=== PATIENT | female | born 1985 | race Caucasian/White ===

== ENCOUNTER 2023-09-29 14:15 | Emergency (ER) | payer OTHER, SELFPAY ==
[2023-09-29 14:26] VITALS: BP 114/74
--- NOTE | 2023-09-29 16:12 | ED.GENMED ---
History of Present Illness
General
Chief Complaint: Eye Problems
Source: patient
Exam Limitations: none
Time Seen by Provider: 09/29/23 15:11
Nursing documentation reviewed up to this point in time: agreed with
Travel History
Have you had any contact with someone who has COVID-19?: No
Do you have any symptoms of coronavirus? Fever > 100 degrees, chills, cough, shortness of breath, sore throat, loss of taste or smell, muscle aches, or headache?: No
History of Present Illness
History of Present Illness:
Patient to ED with complaint of right eye pain. Symptoms started 3 days ago. No history of trauma. Complains of FB senstion, light sensitivity. No prior history of same. Brought self to ED for eval. Wears contact lenses.
Past History
Past History
ED Past Medical History: Other (Ovarian cyst)
ED Past Surgical History: Gynecological (Miscarriage/. Leep procedure)
Social History
Tobacco: Smoker
Alcohol: Daily (Wine one bottle)
Personal: Single
Living: with family
Review of Systems
Review of Systems
Allergies reviewed?: Yes
All Other Systems: ROS reviewed and negative except as documented in HPI and ROS
Constitutional: Reports no symptoms
EENT: Reports tearing and other (Right eye pain)
Respiratory: Reports no symptoms
Cardiac: Reports no symptoms
ABD/GI: Reports no symptoms
Musculoskeletal: Reports no symptoms
Skin: Reports no symptoms
Neurological: Reports no symptoms
Psychiatric: Reports no symptoms
Phy Exam
General Physical Exam
General Presentation: moderate distress
General age: appears stated age
General Skin: warm and dry
General Habitus: normal
General Mental: alert and angry
Eye Exam
Eye Exam: PERRL, EOMI, conjunctiva normal, globe normal and other (normally wears contacts. Wearing glasses today. Lids everted, swept with qtip. No foreign body detected)
Refraction?: Yes
Eye Exam General: PERRL: bilateral and EOM intact: bilateral
Pupil Exam: Bilateral: round and reactive
Conjunctival Changes: right: watery discharge
Cornea Exam: abrasion: Right (superficial punctate keratitis)
Type of Exam: slit lamp, simple and fluorescein
Musculoskeletal Exam
Musculoskeletal Exam: full ROM and neuro vasc intact
Skin Exam
Skin Exam: normal color, warm/dry and no rash
Psychiatric Exam
Psychiatric Exam: normal mood/affect
Course
Orders/Labs/Results
Orders:
Orders
09/29/23 15:54
Tetracaine HCl [Tetracaine 0.5% Ophthalmic Solution] 1 drop .ROUTE .STK-MED ONE
09/29/23 16:06
Ofloxacin [Ocuflox] See Dose Instructions OPHTH NOW STA
Vital Signs
Initial and Last Documented VS:
Initial Vital Signs
Temp Pulse Resp BP Pulse Ox
98.2 F 65 18 114/74 100
09/29/23 14:26 09/29/23 14:26 09/29/23 14:26 09/29/23 14:26 09/29/23 14:26
Last Documented Vital Signs
Temp Pulse Resp BP Pulse Ox
98.2 F 65 18 114/74 100
09/29/23 14:26 09/29/23 14:26 09/29/23 14:26 09/29/23 14:26 09/29/23 14:26
*Critical Care Note
Total Time (30-74mins, 75-104mins- exclusive of procedures): Not Applicable
ED Attending Note
-
Portions of this chart may have been created with voice recognition software.� Occasional wrong word or��sound alike� substitutions may have occurred due to the inherent limitations of voice recognition software.
Discharge Plan
Departure
Patient Disposition: Home (Routine Discharge)
Date of Disposition: 09/29/23
Time of Disposition: 16:07
Patient with high blood pressure during this ER visit?: No
Condition: Good
Covid-19: Not Applicable
Discharge Problem:
Keratitis, superficial, punctate
Instructions: How to Use Eye Drops
Prescriptions:
No Action
hydrocodone-acetaminophen [Vicodin] 1 EACH tablet
1 ea PO Q6H PRN (Reason: pain) Qty: 15 0RF
clindamycin HCl 150 MG capsule
150 mg PO Q6 Qty: 30 0RF
Referrals:
Maurice Sin MD [Active] - Call in 1-3 days for appt
NONE,* [Family Provider] -
Interventions
Interventions:
*Risk Screen - Suicide Last Done: 09/29/23 14:26
*General Assessment Last Done: 09/29/23 14:26
*Neglect/Abuse Screening Last Done: 09/29/23 14:26
*ED COVID-19 Vaccine History Last Done: 09/29/23 14:26
[2023-09-29] MEDS: OCUFLOX 1 DROP OPHTH (16:15)
== END 2023-09-29 16:28 | disposition home or self-care (01) ==
LOC: EMR 14:15
PROVIDERS: EMERGENCY PHYSICIAN Emergency Medicine
DX: H16.9 Unspecified keratitis (principal); F17.200 Nicotine dependence, unspecified, uncomplicated
CPT/HCPCS: 99283